=== PATIENT | male | born 1970 | race African-American/Black ===

== ENCOUNTER 2020-04-15 22:40 | Observation (INO) | payer MEDICARE ==
[~2020-04-15] VITALS: Ht 182.9 cm; Wt 154.1 kg
[2020-04-15 22:45] VITALS: BP 144/105
[2020-04-15] MEDS ORDERED: OMEPRAZOLE 20 M20 M1 PO (22:50)
[2020-04-15] MEDS ORDERED: FUROSEMIDE 20 M20 MG PO (22:50)
[2020-04-15] MEDS ORDERED: FLONASE 0.05%50 MCG NARES (22:51)
[2020-04-15] MEDS ORDERED: COZAAR100 MG PO (22:51)
[2020-04-15] MEDS ORDERED: TESSALON PERLE100 M1 PO (22:52)
[2020-04-15] MEDS ORDERED: ONDANSETRON ODT4 MG PO (22:52)
[2020-04-15] MEDS ORDERED: TAPAZOLE5 MG PO (22:52)
[2020-04-15] MEDS ORDERED: METHOCARBAMOL500 M2 PO (22:53)
[2020-04-15] MEDS ORDERED: OZEMPIC0.25 MG/0. SUBQ (22:53)
[2020-04-15] MEDS ORDERED: VOLTAREN GEL 1100 G1 TOP (22:54)
[2020-04-15] MEDS ORDERED: ALIGN4 MG PO (22:54)
[2020-04-15] MEDS ORDERED: HUMULIN SUBQ (22:56)
[2020-04-15 23:37] LABS: CALCIUM 9.2 mg/dL (8.5-10.1); CREATININE 1.3 mg/dL (0.6-1.3); POTASSIUM 4.2 mmol/L (3.5-5.1)
[2020-04-15 23:48] LABS: TOTAL BILIRUBIN 0.5 mg/dL (<0.1-1.0); TOTAL PROTEIN 8.5 g/dL (6.4-8.2)
[2020-04-15 23:53] LABS: ABSOLUTE BASOPHILS 0.1 thou/uL (0.0-0.2); ABSOLUTE EOSINOPHILS 0.1 thou/uL (0.0-0.7); ABSOLUTE LYMPHOCYTES 3.8 thou/uL (0.8-5.3); ABSOLUTE MONOCYTES 0.9 thou/uL (0.0-1.2); ABSOLUTE NEUTROPHILS 2.8 thou/uL (1.6-8.1); BASOPHILS 0.7 %; EOSINOPHILS 0.9 %; HEMATOCRIT 50.1 % (42.0-52.0); HEMOGLOBIN 17.2 gm/dL (14.0-18.0); LYMPHOCYTES 49.9 %; MCH 32.2 pg (26.0-34.0); MCHC 34.4 g/dL (28.0-37.0); MCV 93.5 fL (80.0-100.0); MONOCYTES 11.9 %; MPV 8.9 fl. (7.2-11.1); NUCLEATED RBCS 0 /100WBC; PLATELET COUNT* 226 thou/uL (150-400); POLYS 36.6 %; RBC 5.36 mil/uL (4.50-6.00); RDW-CV 13.2 % (10.5-14.5); WBC 7.6 thou/uL (4.0-11.0)
[2020-04-16] VITALS (9 sets, daily range): BP systolic 95–142; BP diastolic 51–93
[2020-04-16 00:14] LABS: APTT 28.2 Seconds (25.0-31.3); PROTIME 10.4 Seconds (9.20-11.50)
--- NOTE | 2020-04-16 04:56 | NUR ---
REPORT RECIEVED FROM ED. PT ORIENTED TO ROOM, CALL LIGHT SHOWN, FALL AGREEMENT WENT OVER, PT STATED UNDERSTANDING. ADMISSION DOCUMENTED. IV PATENT, FLUIDS INFUSING, CARDIZEM RUNNING. NO REPORTS OF PAIN. PT REPORTS HAVE SIMMILAR EPISODES IN THE PAST, BUT NONE " BAD" AND THE ONE TONIGHT. WILL CONTINUE WITH PLAN OF CARE.
--- NOTE | 2020-04-16 09:53 | EKG ---
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: [place] : 1970 Requested By: Cara Davis Order Number: [id number] MD: Juan Francisco Rahman Measurements Intervals [place] Rate: 182 P: MA: QRS: -26 QRSD: 88 T: 38 QT: 259 QTc: 451 Interpretive Statements Atrial fibrillation with rapid V-rate Borderline left axis deviation Abnormal R-wave progression, late transition No previous ECG available for comparison Electronically Signed On 04-16-2020 9:53:17 CDT by Juan Francisco Rahman [email or web address] <ELECTRONICALLY SIGNED> By: Juan Francisco Rahman MD, FACC 04/16/20 0953 2250 2250 Juan Francisco Rahman MD, [facility] /EPI
--- NOTE | 2020-04-16 09:54 | EKG ---
[place] [address] ELECTROCARDIOGRAM REPORT Name: SHAYNA BRADFORD Room: [address] M.R.#: [id number] Admission: 04/16/20 Attend Phys: Malcolm groves Sa Discharge: Date of : 66 Date of Service: 04/15/20 2255 Report #: [id number] THIS REPORT FOR: //name// [facility] ED Test Date: 2020-04-15 Test Time: 22:55:18 Pat Name: SHAYNA BRADFORD Department: Room: [facility] Gender: M [facility] Representative: [place] : 1970 Requested By: Cara Davis Order Number: [id number] MD: Juan Francisco Rahman Measurements Intervals [place] Rate: 132 P: 21 MD: 180 QRS: -15 QRSD: 93 T: 20 QT: 295 QTc: 437 Interpretive Statements atrial fibrillation Multiform ventricular premature complexes Borderline left axis deviation Low voltage, extremity and precordial leads Artifact in lead(s) I,III,aVR,aVL,aVF Electronically Signed On 04-16-2020 9:54:05 CDT by Juan Francisco Rahman [email or web address] <ELECTRONICALLY SIGNED> By: Juan Francisco Rahman MD, FAC 04/16/20 0954 2255 2255 Juan Francisco Rahman MD, FAC /EPI
[2020-04-16] MEDS ORDERED: NOVOLOG100 UNIT/1 SUBQ (10:47)
--- NOTE | 2020-04-16 14:33 | CON ---
[address] [address] CONSULTATION Name: SHAYNA BRADFORD JR Room: [address] Coretta Rivera#: [id number] Admission: 04/16/20 Attend Phys: Malcolm Awan Discharge: Date of : 66 Report #: [id number] THIS REPORT FOR: //name// cc: KATYA Doyle family physician/PCP KATYA Doyle family physician/PCP ~ THIS REPORT FOR: //name// CC: KATYA physician/PCP Malcolm Quintero DATE OF SERVICE: 04/16/2020 CARDIOLOGY CONSULTATION HISTORY OF PRESENT ILLNESS: The patient is a 49-year-old black male who I was asked to see in the hospital today after he was noted be in atrial fibrillation. Unfortunately, there are no old records available. The history is obtained from the patient. He has a history of high blood pressure and diabetes. He actually was evaluated by the pluck trimmer in [place], [place], in the past and apparently had a stress test and echocardiogram. There was no evidence of significant heart disease. He is not very active at this time because of the back and knee problems. He lives in [place], [place]. 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 He was scheduled back to [place] yesterday. Yesterday, he felt his heart beating fast and irregular. His blood pressure elevated. He came to the Emergency Room last night and was noted to be in atrial fibrillation. He was started on intravenous diltiazem. He converted to sinus rhythm. I was asked to see him for further evaluation and treatment. He denies a previous history of atrial fibrillation or palpitations. He has had no syncope. Denies exertional chest tightness or shortness of breath. No recent fever or cough. He has had no bleeding problems. PAST MEDICAL HISTORY: He has had no surgical procedures. He does have a history of hypertension and diabetes. No history of hyperlipidemia. MEDICATIONS: Include Lasix, Prilosec, losartan, and methimazole for high thyroid. ALLERGIES: HE HAS AN ALLERGY TO PENICILLIN AND BACTRIM. FAMILY HISTORY: His grandfather had a heart attack. SOCIAL HISTORY: He is . His is in [place]. 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 No smoking or alcohol abuse. Does not drink caffeine. [place] [address] CONSULTATION Name: SHAYNA BRADFORD JR Room: [address] Coretta Rivera#: [id number] Admission: 04/16/20 Attend Phys: Malcolm Awan Discharge: Date of : 66 Report #: [id number] REVIEW OF SYSTEMS: He has had no history of stroke. He does snore at night, but apparently sleep study in the past showed no sleep apnea. He is a large male, being 6 feet and 300 pounds. No history of asthma or liver disease. He has had a kidney stone in the past. No cancer. He has had colonoscopy that showed polyp in the past. He has spinal stenosis. Chronic knee pain. No psychiatric illness. PHYSICAL EXAMINATION: GENERAL: A large black male, appeared in no distress. VITAL SIGNS: He had a blood pressure of 100/60, pulse is 70, and he is afebrile. HEENT: He was anicteric. Conjunctivae pink. Mucous membranes moist. NECK: Veins were not distended. No carotid bruits. Neck supple. CHEST: Clear to auscultation. CARDIOVASCULAR: Regular rate and rhythm. No significant murmurs. ABDOMEN: Soft. EXTREMITIES: Had no edema. Dorsalis pedis pulse was 1+ bilaterally. SKIN: Cool and dry. NEUROLOGIC: Nonfocal. DIAGNOSTIC DATA: His ECG on admission showed atrial fibrillation with rapid ventricular response rate. Current ECG appears to be in a sinus rhythm. He had workup in the Emergency Room last night, he had a portable chest x-ray that showed normal heart size and clear lung ferrera. LABORATORY DATA: Sodium 141, creatinine 1.3, and glucose 159. His troponin 0.06. BNP 44. White blood cell count 7.6 and hemoglobin 17.2. IMPRESSION AND RECOMMENDATIONS: 1. Paroxysmal atrial fibrillation. The patient has converted to sinus rhythm. At this time, I would recommend starting sotalol. Since he has a CHADS-VASc score of 2, I would recommend anticoagulation with Xarelto. 2. Hypertension. The patient has been on an ARB. 3. Chronic edema. The patient is on Lasix. 4. Obesity. 5. Spinal stenosis. <ELECTRONICALLY SIGNED> By: Juan Francisco Rahman MD, [facility] 04/16/20 1433 0917 [id number] Rahman MD, [facility] /nt
--- NOTE | 2020-04-16 14:33 | CON ---
[address] [address] CONSULTATION Name: SHAYNA BRADFORD Room: [address] Coretta Rivera#: [id number] Admission: 04/16/20 Attend Phys: Malcolm Awan Discharge: Date of : 66 Report #: [id number] THIS REPORT FOR: //name// cc: KATYA Doyle family physician/PCP KATYA Doyle family physician/PCP ~ THIS REPORT FOR: //name// CC: KATYA physician/PCP Malcolm Quintero DATE OF SERVICE: 04/16/2020 CARDIOLOGY CONSULTATION HISTORY OF PRESENT ILLNESS: The patient is a 49-year-old black male. Dictation Ends Here. <ELECTRONICALLY SIGNED> By: Juan Francisco aRhman MD, FACC 04/16/20 1433 1117 [id number] Rahman MD, FACC /nt
--- NOTE | 2020-04-16 18:08 | NUR ---
Pt. aox4, vss, sr-sa on monitor, denies pain. up ad cricket to bathroom. visited at bedside. Call light and personal belongings placed within reach. Educated pt. on sotalol. QT interval under 500 msec, hr 61. Pt. in bed, talking on phone, in no apparent distress at this time.
[2020-04-17 02:53] LABS: CHOLESTEROL 142 mg/dL (<200); HDL CHOLESTEROL 29 mg/dL (>40); LDL CHOLESTEROL 99 mg/dL (<100); TC:HDL 4.9 Ratio (Not establshd); TRIGLYCERIDE 73 mg/dL (<150); VLDL 15 mg/dL (<40)
[2020-04-17 02:54] LABS: SERUM ASSESSMENT Clear
[2020-04-17 04:00] VITALS: BP 105/64
--- NOTE | 2020-04-17 05:57 | NUR ---
PT CARE ASSUMED AT 1930. SAT MAINTAINED IN RA. ALERT AND ORIENTED X4. DENIES PAIN AND SOB. CALL LIGHT WITHIN REACH AND BED IN LOW POSITION. HOURLY ROUNDING DONE FOR PT SAFETY.
[2020-04-17 08:00] VITALS: BP 123/77
[2020-04-17 13:43] VITALS: BP 119/80
[2020-04-17 16:20] VITALS: BP 117/69
--- NOTE | 2020-04-17 18:50 | NUR ---
PT. UP AD SIMIN, VSS, DENIES PAIN, AOX4, SA ON MONITOR BUT STABLE. 1700 HUMULIN 70/30 HELD BLOOD GLUCOSE 71 AT 1630. CALL LIGHT AND PERSONAL BELONGINGS PLACED WITHIN REACH. IN ROOM, STAYING OVERNIGHT, COT IN ROOM. PT. SITTING IN BED, VISITING WITH , IN NO APPARENT DISTRESS, AT SHIFT CHANGE.
[2020-04-17 20:10] VITALS: BP 122/86
[2020-04-18] VITALS: BP 136/61
[2020-04-18 04:00] VITALS: BP 117/77
[2020-04-18 07:30] VITALS: BP 104/71
[2020-04-18] MEDS ORDERED: SORINE 80 MG TA80 M1 PO (08:33)
[2020-04-18] MEDS ORDERED: XARELTO20 MG PO (08:33)
[2020-04-18 10:21] VITALS: BP 104/71
[2020-04-18 11:51] VITALS: BP 163/82
--- NOTE | 2020-04-18 14:55 | 2DMMODE ---
[place] [address] 2 D/M-MODE ECHOCARDIOGRAM Name: SUZETTESHAYNAFUNMI Rivera JR Room: [address] Coretta Rivera#: [id number] Admission: 04/16/20 Attend Phys: Malcolm groves Sa Discharge: 04/18/20 Date of : 66 Date of Service: 04/18/20 1455 Report #: [id number] THIS REPORT FOR: cc: KATYA - No family physician/PCP KATYA - No family physician/PCP Rell Faye MD [facility] ~ APPROVED REPORT Study performed: 04/18/2020 09:20:49 EXAM: Comprehensive 2D, Doppler, and color-flow Echocardiogram Patient Location: In-Patient Room #: [facility] Status: routine BSA: 2.53 HR: 60 bpm BP: 117/77 mmHg Rhythm: NSR Other Information Study Quality: Good 2D Dimensions IVSd: 11.00 (7-11mm) LVOT Diam: 21.91 (18-24mm) LVDd: 52.04 mm PWd: 9.66 (7-11mm) Ascending Ao: 29.31 (22-36mm) LVDs: 36.72 (25-40mm) Aortic Root: 32.49 mm Volumes Left Atrial Volume (Systole) LA ESV Index: 18.80 mL/m2 Aortic Valve AoV Peak Jaren.: 1.27 m/s AO Peak Gr.: 6.46 mmHg LVOT Max P.97 mmHg AO Mean Gr.: 3.28 mmHg LVOT Mean P.05 mmHg LVOT Max V: 1.11 m/s AO V2 VTI: 25.63 cm LVOT Mean V: 0.64 m/s YANET (VTI): 3.20 cm2 LVOT V1 VTI: 21.72 cm Mitral Valve E/A Ratio: 0.81 MV Decel. Time: 258.99 [place] [address] 2 D/M-MODE ECHOCARDIOGRAM Name: SHAYNA BRADFORD JR [address] [id number] Admission: 04/16/20 Attend Phys: Malcolm groves Sa Discharge: 04/18/20 Date of : 66 Date of Service: 04/18/20 1455 Report #: [id number] MV E Max Jaren.: 0.59 m/s MV PHT: 75.11 ms MVA (PHT): 2.93 cm2 TDI E/Lateral E': 6.56 E/Medial E': 7.38 Medial E' Jaren.: 0.08 m/s Lateral E' Jaren.: 0.09 m/s Pulmonary Valve PV Peak Jaren.: 0.85 m/s PV Peak Gr.: 2.87 mmHg Left Ventricle The left ventricle is normal size. There is normal LV segmental wall motion. There is normal left ventricular wall thickness. Left ventricular systolic function is mildly decreased. LVEF is 45%. Grade I - abnormal relaxation pattern. Right Ventricle The right ventricle is normal size. The right ventricular systolic function is normal. Atria The left atrium size is normal. The right atrium size is normal. Aortic Valve The aortic valve is normal in structure. No aortic regurgitation is present. There is no aortic valvular stenosis. Mitral Valve The mitral valve is normal in structure. There is no mitral valve regurgitation noted. No evidence of mitral valve stenosis. Tricuspid Valve The tricuspid valve is normal in structure. Unable to assess PA pressure. Trace tricuspid regurgitation. Pulmonic Valve The pulmonary valve is normal in structure. Trace pulmonic regurgitation. Great Vessels The aortic root is normal in size. IVC is normal in size and collapses >50% [place] [address] 2 D/M-MODE ECHOCARDIOGRAM Name: SHAYNA BRADFORD Room: [address] Coretta Rivera#: [id number] Admission: 04/16/20 Attend Phys: Malcolm groves Sa Discharge: 04/18/20 Date of : 66 Date of Service: 04/18/20 1455 Report #: [id number] Pericardium There is no pericardial effusion. <Conclusion> The left ventricle is normal size. There is normal left ventricular wall thickness. Left ventricular systolic function is mildly decreased. LVEF is 45%. Grade I - abnormal relaxation pattern. The left atrium size is normal. The aortic valve is normal in structure. The mitral valve is normal in structure. The tricuspid valve is normal in structure. IVC is normal in size and collapses >50% with inspiration. There is no pericardial effusion. There is normal LV segmental wall motion. <ELECTRONICALLY SIGNED> By: Rell Faye MD, [facility] 04/18/20 1455 1455 1455 Rell Faye MD, FACC /INF
--- NOTE | 2020-04-18 15:35 | EKG ---
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1970 Requested By: Juan Francisco Rahman Order Number: [id number] MD: Rell Faye Measurements Intervals [place] Rate: 61 P: 40 MD: 184 QRS: 15 QRSD: 88 T: 4 QT: 448 QTc: 452 Interpretive Statements Sinus rhythm Borderline low voltage, extremity leads Compared to ECG 04/15/2020 22:55:18 Atrial fibrillation no longer present Ventricular premature complex(es) no longer present Electronically Signed On 04-18-2020 15:35:41 CDT by Rell Faye [email or web address] <ELECTRONICALLY SIGNED> By: Rell Faye MD, [facility] 04/18/20 1535 0853 0853 Rell Faye MD, [facility] /EPI
--- NOTE | 2020-04-18 15:42 | EKG ---
[place] [address] ELECTROCARDIOGRAM REPORT Name: SHAYNA BRADFORD Room: [address] M.R.#: [id number] Admission: 04/16/20 Attend Phys: Malcolm groves Sa Discharge: 04/18/20 Date of : 66 Date of Service: 04/18/20 0907 Report #: [id number] THIS REPORT FOR: //name// [facility] Test Date: 2020-04-18 Test Time: 09:07:27 Pat Name: SHAYNA BRADFORD Department: Room: [address] Gender: M Rn New Grad: : 1970 Requested By: Juan Francisco Rahman Order Number: [id number] Reading MD: Rell Faye Measurements Intervals [place] Rate: 64 P: 50 [place]: 184 QRS: -2 QRSD: 85 T: 23 QT: 425 QTc: 439 Interpretive Statements Sinus rhythm Baseline wander in lead(s) I Compared to ECG 04/15/2020 22:55:18 Atrial fibrillation no longer present Ventricular premature complex(es) no longer present Electronically Signed On 04-18-2020 15:42:06 CDT by Rell Faye [email or web address] <ELECTRONICALLY SIGNED> By: Rell Faye MD, [facility] 04/18/20 1542 0907 0907 Rell Faye MD, [facility] /EPI
--- NOTE | 2020-04-19 16:11 | NUR ---
Spoke with the patient by phone, states he had high BP during the night but it is back to normal now and he was seen at the cardiology office today and reported what his BP were during the night. We discussed xarelto, sotalol, valsalva manuver, avoiding caffeine, and when to go to the ER with a racing heart rate or high BP. Encouraged him to take his BP twicw a day and keep a record of it to share with his doctors. He did not have any other questions or concerns at this time.
== END 2020-04-18 11:00 | disposition home or self-care (01) ==
LOC: M.ERS 22:40 → M.TBA-ER 04-16 00:43 → M.2W 04-16 00:43
PROVIDERS: Internal Medicine; Personal Emergency Response Attendant; ADMIT Family Medicine; ATTEND Family Medicine
DX: I48.91 Unspecified atrial fibrillation (principal); I10 Essential (primary) hypertension; E03.9 Hypothyroidism, unspecified; E11.9 Type 2 diabetes mellitus without complications; Z79.01 Long term (current) use of anticoagulants